=== PATIENT | female | born 1985 | race Caucasian/White ===

== ENCOUNTER 2023-04-07 23:08 | Emergency (ER) | payer OTHER, SELFPAY ==
[2023-04-07 23:08] VITALS: BMI 21.5
[2023-04-07 23:18] VITALS: BP 120/90
[2023-04-08 01:14] LABS: % Basophils 0.2 % (0-2); % Immature Granulocytes 0.5 % (0-0.5); % Lymphocytes 2.6 % (20.5-51.1); % Monocytes 5.1 % (1.7-9.3); % Neutrophils 91.6 % (42.2-75.2); Absolute Immature Granulocytes 0.1 10^3/uL (0-0.05); Absolute Lymphocytes 0.4 10^3/uL (1.2-3.4); Absolute Monocytes 0.8 10^3/uL (0.1-0.6); Absolute Neutrophils 13.6 10^3/uL (1.4-6.5); Hematocrit 45.7 % (37.0-47.0); Hemoglobin 14.7 g/dL (12.0-16.0); Mean Corp Hgb Conc. 32.2 g/dL (33.0-37.0); Mean Corpuscular Hgb 33.1 pg (27.0-31.0); Mean Corpuscular Volume 102.9 fL (81.0-99.0); Mean Platelet Volume 9.4 fL (7.4-10.4); Nucleated Red Blood Cells % 0 %; Platelet Count 290 10^3/uL (130-400); Red Blood Cell Count 4.44 10^6/uL (4.20-5.40); Red Cell Dist. Width 12.8 % (11.5-14.5); White Blood Cell Count 14.8 10^3/uL (4.8-10.8)
[2023-04-08 01:20] VITALS: BP 144/98
[2023-04-08 01:36] LABS: ALT (SGPT) 56 U/L (0-35); AST (SGOT) 62 U/L (14-36); Albumin 5.8 g/dl (3.5-5.0); Alkaline Phosphatase 88 U/L (38-126); Blood Urea Nitrogen 15 mg/dl (7-17); Calcium 10.1 mg/dl (8.4-10.2); Carbon Dioxide < 5 mmol/L (22-30); Chloride 101 mmol/L (98-107); Estimated Creatinine Clearance 59 ml/min; Glucose 211 mg/dl (70-99); Sodium 140 mmol/L (135-145); Total Bilirubin 1.1 mg/dl (0.2-1.3); Total Protein 10.2 g/dl (6.3-8.2); eGFR > 60.00
[2023-04-08 01:38] LABS: HCG, Serum Qualitative Screen Negative
--- NOTE | 2023-04-08 01:41 | ED.GENMED ---
History of Present Illness
General
Chief Complaint: Abdominal Symptoms
Source: patient, records and spouse
Exam Limitations: none
Time Seen by Provider: 04/08/23 01:15
Nursing documentation reviewed up to this point in time: agreed with
Travel History
Have you had any contact with someone who has COVID-19?: No
Do you have any symptoms of coronavirus? Fever > 100 degrees, chills, cough, shortness of breath, sore throat, loss of taste or smell, muscle aches, or headache?: No
History of Present Illness
History of Present Illness:
Patient is a 37-year-old female who has had nausea and vomiting for the past 2 days without fever or chills. Patient denies diarrhea or abdominal pain. Patient is due for her period. No one else at home is ill. Patient thought she might have an
ear infection because her ears felt clogged however at urgent care they said she did not have an ear infection. Patient does have some nasal congestion without facial pain. Patient denies sore throat. Patient denies chest pain or palpitations.
Patient denies any symptoms. Patient has similar episode and had to be admitted due to significant acidosis and hyperkalemia. Patient corrected with fluids
Past History
Past History
ED Past Medical History: None
Social History
Tobacco: Non-smoker
Review of Systems
Review of Systems
All Other Systems: ROS reviewed and negative except as documented in HPI and ROS
Constitutional: Denies fever or chills
EENT: Reports runny nose and other (Congested ears)
Respiratory: Reports no symptoms
Cardiac: Reports palpitations
ABD/GI: Reports nausea, vomiting and anorexia; Denies abdominal pain, diarrhea or constipated
: Reports no symptoms
Musculoskeletal: Reports no symptoms
Skin: Reports no symptoms
Neurological: Reports no symptoms
Hematologic/Lymphatic: Reports no symptoms
Phy Exam
Physical Exam
Physical Exam:
Physical Exam
General: mild distress, alert and appropriate, well nourished, dry mucous membranes
HENT: Normocephalic, supple with no lymphadenopathy, no thyromegaly. Oropharynx is clear. TMs intact with fluid in the middle ear but no signs of infection. Nares patent with turbinate enlargement and clear rhinorrhea
Eyes: Clear sclera, conjuctiva without injection
Heart: Regular rhythm and rate. No S3, S4. No murmur.
Lungs: No respiratory distress, no stridor, lung sounds clear and equal bilaterally
Abdomen: Soft, nontender, no organomegaly, no CVA tenderness, BS good
Neuro: Alert and oriented x 3, CN II - XII intact, no motor focality, no cerebellar dysfunction
Skin: no rash
Psychiatric: well kept. interactive and cooperative
Extremities: No edema, cyanosis, tenderness, Good and equal peripheral pulses.
Course
Orders/Labs/Results
Orders:
Orders
04/08/23 00:35
IV Insert/Care/Rem.- Treatment PRN
Urinalysis Reflex To Culture Urgent
Date Specimen was Collected: 04/08/23
Time Specimen was Collected: 00:35
Test Result ONCE
04/08/23 00:55
Complete Blood Count/With Diff Urgent
Comprehensive Metabolic Panel Urgent
HCG, Serum Qualitative Screen Urgent
Lipase Urgent
04/08/23 01:39
0.9% Sodium Chloride 1000 ml [Nss] 1,600 ml IV NOW STA
Promethazine [Phenergan] 25 mg 0.9% Sodium Chloride 50 ml [Nss] 50 ml IV NOW
04/08/23 02:30
Promethazine [Phenergan] 25 mg 0.9% Sodium Chloride 50 ml [Nss] 50 ml IV ONCE
04/08/23 03:43
Basic Metabolic Panel Urgent
Abnormal Lab Results
04/08/23
00:55
WBC 14.8 H 10^3/uL
(4.8-10.8)
MCV 102.9 H fL
(81.0-99.0)
MCH 33.1 H pg
(27.0-31.0)
MCHC 32.2 L g/dL
(33.0-37.0)
Abs Immat Gran (auto) 0.1 H 10^3/uL
(0-0.05)
Absolute Neuts (auto) 13.6 H 10^3/uL
(1.4-6.5)
Absolute Lymphs (auto) 0.4 L 10^3/uL
(1.2-3.4)
Absolute Monos (auto) 0.8 H 10^3/uL
(0.1-0.6)
Neutrophils % 91.6 H %
(42.2-75.2)
Lymphocytes % 2.6 L %
(20.5-51.1)
Carbon Dioxide < 5 L* mmol/L
(22-30)
Creatinine 1.1 H mg/dL
(0.6-1.0)
Glucose 211 H mg/dl
(70-99)
AST 62 H U/L
(14-36)
ALT 56 H U/L
(0-35)
Total Protein 10.2 H g/dl
(6.3-8.2)
Albumin 5.8 H g/dl
(3.5-5.0)
Lipase 432 H U/L
(23-300)
04/08/23 00:55
Vital Signs
Initial and Last Documented VS:
Initial Vital Signs
Temp Pulse Resp BP Pulse Ox
97.9 F 131 20 120/90 98
04/07/23 23:18 04/07/23 23:18 04/07/23 23:18 04/07/23 23:18 04/07/23 23:18
Last Documented Vital Signs
Temp Pulse Resp BP Pulse Ox
97.9 F 131 20 127/87 100
04/07/23 23:18 04/07/23 23:18 04/07/23 23:18 04/08/23 04:00 04/08/23 03:58
*Radiology
Radiology exam reviewed: other (na)
*Pulse Oximetry
Patient hypoxic: no
*EKG
Interpreted by ED Provider?: NA
*Release Engineer Interpretation
Rate: tachycardiac
Interpretation: abnormal
Heart Rate: 110
Rhythm: sinus
*Critical Care Note
Total Time (30-74mins, 75-104mins- exclusive of procedures): Not Applicable
Update Note
Update Note:
Patient is feeling much improved. Discussed with the patient about the possibility of admitting her for CO2 does not improve however the patient wants to go home. Patient is able to take by mouth. Patient has no real complaints at this time.
Patient is rather adamant about going home and trying to drink and states she has plenty of Pedialyte. Patient be given prescriptions for Zofran as well as Phenergan suppositories. Patient states that she did not take any Zofran prior to the
emergency department. The acidosis is from dehydration, vomiting and volume contraction.
ED Attending Note
-
Portions of this chart may have been created with voice recognition software.� Occasional wrong word or��sound alike� substitutions may have occurred due to the inherent limitations of voice recognition software.
Discharge Plan
Departure
Patient with high blood pressure during this ER visit?: No
Condition: Fair
Covid-19: Not Applicable
Discharge Problem:
Vomiting, Metabolic acidosis, Acute dehydration, Serous otitis media
Instructions: Dehydration, Adult (DC), [place] Diet, Nausea and Vomiting, Adult (DC), Serous Otitis Media (DC)
Prescriptions:
New
ondansetron 8 mg tablet,disintegrating
8 mg PO TID PRN (Reason: nausea and vomiting) Qty: 30 0RF
promethazine 25 mg suppository
25 mg DC Q6H PRN (Reason: nausea and vomiting) Qty: 20 0RF
No Action
cetirizine 10 MG tablet
10 mg PO DAILYPRN PRN (Reason: allergies)
Referrals:
Nikos Meza MD [Active] - Follow up in 5-7 days
NONE,* [Family Provider] -
Activity Restrictions/Additional Instructions:
Make sure to drink Pedialyte. Any increase and lethargy or vomiting please return. Use Flonase once a day.
Interventions
Interventions:
*Risk Screen - Suicide Last Done: 04/07/23 23:18
*General Assessment Last Done: 04/07/23 23:18
*Neglect/Abuse Screening Last Done: 04/07/23 23:18
ED- Fall Risk Assessment Last Done: 04/07/23 23:18
*ED COVID-19 Vaccine History Last Done: 04/07/23 23:18
EB-Sgzngg-Gihdmbetoo Assessment Last Done: 04/08/23 01:29
[2023-04-08 01:50] LABS: Lipase 432 U/L (23-300)
[2023-04-08 02:00] VITALS: BP 135/87
[2023-04-08] MEDS: PHENERGAN 51 MG IV (02:58)
[2023-04-08] MEDS: NSS 1600 ML IV (02:58)
[2023-04-08 03:00] VITALS: BP 140/82
[2023-04-08 04:00] VITALS: BP 127/87
[2023-04-08 04:19] LABS: Blood Urea Nitrogen 13 mg/dl (7-17); Calcium 8.5 mg/dl (8.4-10.2); Carbon Dioxide 8 mmol/L (22-30); Chloride 108 mmol/L (98-107); Estimated Creatinine Clearance 82 ml/min; Glucose 141 mg/dl (70-99); Potassium 5.5 mmol/L (3.5-5.1); Sodium 138 mmol/L (135-145); eGFR > 60.00
--- NOTE | 2023-04-08 04:30 | ED.GENMED ---
History of Present Illness
General
Chief Complaint: Abdominal Symptoms
Time Seen by Provider: 04/08/23 01:15
Travel History
Have you had any contact with someone who has COVID-19?: No
Do you have any symptoms of coronavirus? Fever > 100 degrees, chills, cough, shortness of breath, sore throat, loss of taste or smell, muscle aches, or headache?: No
Past History
Past History
ED Past Medical History: None
Social History
Tobacco: Non-smoker
Course
Orders/Labs/Results
Orders:
Orders
04/08/23 00:35
IV Insert/Care/Rem.- Treatment PRN
Urinalysis Reflex To Culture Urgent
Date Specimen was Collected: 04/08/23
Time Specimen was Collected: 00:35
Test Result ONCE
04/08/23 00:55
Complete Blood Count/With Diff Urgent
Comprehensive Metabolic Panel Urgent
HCG, Serum Qualitative Screen Urgent
Lipase Urgent
04/08/23 01:39
0.9% Sodium Chloride 1000 ml [Nss] 1,600 ml IV NOW STA
Promethazine [Phenergan] 25 mg 0.9% Sodium Chloride 50 ml [Nss] 50 ml IV NOW
04/08/23 02:30
Promethazine [Phenergan] 25 mg 0.9% Sodium Chloride 50 ml [Nss] 50 ml IV ONCE
04/08/23 03:43
Basic Metabolic Panel Urgent
Abnormal Lab Results
04/08/23 04/08/23
00:55 03:43
WBC 14.8 H 10^3/uL
(4.8-10.8)
MCV 102.9 H fL
(81.0-99.0)
MCH 33.1 H pg
(27.0-31.0)
MCHC 32.2 L g/dL
(33.0-37.0)
Abs Immat Gran (auto) 0.1 H 10^3/uL
(0-0.05)
Absolute Neuts (auto) 13.6 H 10^3/uL
(1.4-6.5)
Absolute Lymphs (auto) 0.4 L 10^3/uL
(1.2-3.4)
Absolute Monos (auto) 0.8 H 10^3/uL
(0.1-0.6)
Neutrophils % 91.6 H %
(42.2-75.2)
Lymphocytes % 2.6 L %
(20.5-51.1)
Potassium 5.5 H mmol/L
(3.5-5.1)
Chloride 108 H mmol/L
(98-107)
Carbon Dioxide < 5 L* mmol/L 8 L* mmol/L
(22-30) (22-30)
Creatinine 1.1 H mg/dL
(0.6-1.0)
Glucose 211 H mg/dl 141 H mg/dl
(70-99) (70-99)
AST 62 H U/L
(14-36)
ALT 56 H U/L
(0-35)
Total Protein 10.2 H g/dl
(6.3-8.2)
Albumin 5.8 H g/dl
(3.5-5.0)
Lipase 432 H U/L
(23-300)
04/08/23 00:55
04/08/23 03:43
Vital Signs
Initial and Last Documented VS:
Initial Vital Signs
Temp Pulse Resp BP Pulse Ox
97.9 F 131 20 120/90 98
04/07/23 23:18 04/07/23 23:18 04/07/23 23:18 04/07/23 23:18 04/07/23 23:18
Last Documented Vital Signs
Temp Pulse Resp BP Pulse Ox
97.9 F 131 20 127/87 100
04/07/23 23:18 04/07/23 23:18 04/07/23 23:18 04/08/23 04:00 04/08/23 03:58
ED Attending Note
-
Portions of this chart may have been created with voice recognition software.� Occasional wrong word or��sound alike� substitutions may have occurred due to the inherent limitations of voice recognition software.
Discharge Plan
Departure
Patient Disposition: Home (Routine Discharge)
Date of Disposition: 04/08/23
Time of Disposition: 04:30
Patient with high blood pressure during this ER visit?: No
Condition: Fair
Covid-19: Not Applicable
Discharge Problem:
Vomiting, Metabolic acidosis, Acute dehydration, Serous otitis media
Instructions: Dehydration, Adult (DC), [place] Diet, Nausea and Vomiting, Adult (DC), Serous Otitis Media (DC)
Prescriptions:
New
ondansetron 8 mg tablet,disintegrating
8 mg PO TID PRN (Reason: nausea and vomiting) Qty: 30 0RF
promethazine 25 mg suppository
25 mg PA Q6H PRN (Reason: nausea and vomiting) Qty: 20 0RF
No Action
cetirizine 10 MG tablet
10 mg PO DAILYPRN PRN (Reason: allergies)
Referrals:
Nikos Meza MD [Active] - Follow up in 5-7 days
NONE,* [Family Provider] -
Activity Restrictions/Additional Instructions:
Make sure to drink Pedialyte. Any increase and lethargy or vomiting please return. Use Flonase once a day.
Interventions
Interventions:
*Risk Screen - Suicide Last Done: 04/07/23 23:18
*General Assessment Last Done: 04/07/23 23:18
*Neglect/Abuse Screening Last Done: 04/07/23 23:18
ED- Fall Risk Assessment Last Done: 04/07/23 23:18
*ED COVID-19 Vaccine History Last Done: 04/07/23 23:18
QI-Ceaius-Vrixsqjihn Assessment Last Done: 04/08/23 01:29
[2023-04-08 05:00] VITALS: BP 134/81
== END 2023-04-08 05:17 | disposition home or self-care (01) ==
LOC: EMR 23:08
PROVIDERS: EMERGENCY PHYSICIAN Emergency Medicine
DX: R11.10 Vomiting, unspecified (principal); E87.21 Acute metabolic acidosis; E86.0 Dehydration; H65.03 Acute serous otitis media, bilateral
CPT/HCPCS: 99284; 96374; 96361; 80048; 80053; 83690; 84703; 85025